=== PATIENT | male | born 1965 | race Caucasian/White ===

== ENCOUNTER 2020-09-17 01:19 | Outpatient (CLI) | payer BC, SELFPAY ==
[2020-09-17 19:01] LABS: SARS-CoV-2 RNA PCR Negative
== END 2020-09-17 01:20 | disposition home or self-care (01) ==
LOC: ANHCOVIDDT 01:19
PROVIDERS: PCP Nurse Practitioner Adult Health; Visit Provider Internal Medicine Gastroenterology
DX: Z01.812 Encounter for preprocedural laboratory examination (principal); Z20.828 Contact with and (suspected) exposure to other viral communicable diseases
CPT/HCPCS: 87635; C9803; U0003

== ENCOUNTER 2020-09-19 00:49 | Day surgery (SDC) | payer BC, SELFPAY ==
[2020-09-13 15:00] VITALS: BMI 28.8
[2020-09-19 06:19] VITALS: BP 125/76; PULSE 58; RESP 16; TEMP 36.4; O2SAT 100; BMI 28.3
[2020-09-19] MEDS: LACTATED RINGERS 1,000 ML 150 ML IV CONT (06:28)
--- NOTE | 2020-09-19 07:03 | WPDANESEPPF ---
Anes - Initial Pre Proc Eval Procedure: Operation Date: 09/19/20 07:30 Proposed Procedures p Screening Colonoscopy - Timothy Christopher MD Date/Time: 09/19/20 07:03 Surgeon: Timothy Christopher MD Pre Op Diagnosis: neoplasm screening, hx of polyps Patient Data Age: 55 Gender: M Height: 5 ft 10 in Weight: 89.4 kg Last Vital Signs Temp 97.5 F L 09/19/20 06:19 Pulse 58 L 09/19/20 06:19 Resp 16 09/19/20 06:19 BP 125/76 09/19/20 06:19 Pulse Ox 100 09/19/20 06:19 Allergies Allergy/AdvReac Type Severity Reaction Status Date / Time No Known Allergies Allergy Verified 09/19/20 06:18 Home Medications Medication Instructions Recorded Confirmed Type ascorbic acid (vitamin C) [Vitamin 1 g PO DAILY 09/13/20 09/19/20 History C] multivit,stress formula-zinc 1 tablet PO DAILY 09/13/20 09/19/20 History Patient hx anesthesia problems: none Family hx anesthesia problems: none [facility] Past Medical History Medical History (Updated 09/19/20 @ 07:02 by Toni Gee MD) Healthy adult Social History Social History Smoking status: Never smoker Alcohol intake: never Substance use: never Substance use type: does not use Spiritual care concerns: No Anes - Eval Final PreProcedure Day of Procedure 09/19/20 07:03 Patient weight: normal Heart: regular rate and rhythm Lungs: clear to auscultation Airway: Mallampati scale class II Neurological: alert and oriented Last oral intake: >/= 8 hours ASA classification: I Emergent: no Anesthetic plan: proceed Anesthesia type and monitoring: general GIVS and standard monitoring Informed Consent: The patient's anesthetic plan and its attendant risks and benefits were discussed with the patient/family/POA. Questions were solicited and answers provided to the satisfaction of the patient/family/POA.
--- NOTE | 2020-09-19 07:07 | P.HP_ITS ---
History of Present Illness History of Present Illness Consent: Risks, benefits, and alternatives have been discussed and questions answered. Patient agrees to proceed with procedure. Chief complaint: neoplasm screening, hx of polyps Narrative: Eugene Gavin is a 55 year old W male For referred for screening colonoscopy secondary history of colonic polyps. patient's last colonoscopy was over 3 years ago which time a moderate-sized adenomatous polyp was removed the sigmoid colon. Patient is asymptomatic. There is no family history of colon polyps or colon cancer. No interval changes in the solid. [facility] Past Medical History Medical History Healthy adult Surgical History Surgical History (Updated 09/19/20 @ 07:08 by Timothy Christopher MD) History of vasectomy Social History Social History Smoking status: Never smoker Alcohol intake: never Substance use: never Substance use type: does not use Spiritual care concerns: No Meds Home Medications and Allergies Home Medications Medication Instructions Recorded Confirmed Type ascorbic acid (vitamin C) [Vitamin 1 g PO DAILY 09/13/20 09/19/20 History C] multivit,stress formula-zinc 1 tablet PO DAILY 09/13/20 09/19/20 History Allergies Allergy/AdvReac Type Severity Reaction Status Date / Time No Known Allergies Allergy Verified 09/19/20 06:18 Vital Signs Vital Signs - 24 hr 09/19/20 06:19 Temperature 36.4 C L Pulse Rate 58 L Respiratory Rate 16 Blood Pressure 125/76 Pulse Oximetry 100 Exam Const: Orientation/consciousness: patient oriented x3 Resp: Auscultation: clear to auscultation bilaterally Cardio: Rate: regular rate Rhythm: regular rhythm Heart sounds: no murmurs GI: GI Palp: Yes Soft to palpation, No Tenderness to palpation present (GI), Yes No hepatosplenomegaly present and No Palpable mass present Auscultation: normal bowel sounds Neuro: General: patient oriented x3 and no focal motor deficits Extrem: General: no pedal edema Assessment and Plan Additional Plan screening colonoscopy secondary history of colonic polyps
[2020-09-19 07:41] VITALS: BP 106/68; PULSE 62; RESP 16; O2SAT 100
[2020-09-19 07:51] VITALS: BP 110/73; PULSE 54; RESP 16; O2SAT 98
[2020-09-19 08:01] VITALS: BP 111/78; PULSE 56; RESP 14; O2SAT 100
== END 2020-09-19 08:30 | disposition home or self-care (01) ==
PROVIDERS: PCP Nurse Practitioner Adult Health; Visit Provider Internal Medicine Gastroenterology
PROC: 0DJD8ZZ Inspection of Lower Intestinal Tract, Via Natural or Artificial Opening Endoscopic (ICD-10-PCS; CPT 45378; principal; 2020-09-19 07:30)
DX: Z12.11 Encounter for screening for malignant neoplasm of colon (principal); Z86.010 Personal history of colon polyps
CPT/HCPCS: 45378; J2704; J7120